=== PATIENT | female | born 1985 | race Caucasian/White ===

== ENCOUNTER → 2017-03-09 | Outpatient (REF) | payer OTHER | LOC: M LAB REF 19:07 | DX: J06.9 Acute upper respiratory infection, unspecified (principal) ==

== ENCOUNTER → 2017-10-31 | Outpatient (REF) | payer OTHER | LOC: M LAB REF 12:30 | DX: J02.9 Acute pharyngitis, unspecified (principal) ==

== ENCOUNTER 2018-09-25 15:32 | Emergency (ER) | payer BC, OTHER ==
[~2018-09-25] VITALS: Ht 170.2 cm; Wt 87.3 kg
[2018-09-25] MEDS ORDERED: RIZA10TA4 PO (15:44)
[2018-09-25] MEDS ORDERED: ONDA4TAB6 PO (15:44)
[2018-09-25 16:07] LABS: BASO % 0.2 % (0.0-1.0); EOS # 0.1 10^3/uL (0.0-0.50); EOS % 1.1 % (0.0-3.0); HEMOGLOBIN 13.2 g/dl (12.0-15.5); LYMPH # 2.4 10^3/uL (1.5-4.5); LYMPH % 19.8 % (24.0-44.0); MEAN CORPUSCULAR HEMOGLOBIN 31.1 pg (27.0-33.0); MEAN CORPUSCULAR HGB CONC 33.8 g/dl (32.0-36.5); MONO # 0.8 10^3/uL (0.0-0.8); MONO % 6.6 % (0.0-5.0); NEUTROPHILS # 8.9 10^3/uL (1.8-7.7); NEUTROPHILS % 71.9 % (36.0-66.0); PLATELET COUNT, AUTOMATED 263 10^3/uL (150-450); RED BLOOD COUNT 4.24 10^6/uL (4.00-5.40); WHITE BLOOD COUNT 12.3 10^3/uL (4.0-10.0)
[2018-09-25 16:36] LABS: ALBUMIN 3.6 GM/DL (3.2-5.2); ALT/SGPT 24 U/L (12-78); BILIRUBIN,DIRECT < 0.1 MG/DL (0.0-0.2); BILIRUBIN,TOTAL 0.1 MG/DL (0.2-1.0); BLOOD UREA NITROGEN 10 MG/DL (7-18); CARBON DIOXIDE LEVEL 24 MEQ/L (21-32); CHLORIDE LEVEL 106 MEQ/L (98-107); CREATININE FOR GFR 0.76 MG/DL (0.55-1.30); GLOMERULAR FILTRATION RATE > 60.0 (>60); GLUCOSE, FASTING 111 MG/DL (70-100); LIPASE 121 U/L (73-393); POTASSIUM SERUM 3.5 MEQ/L (3.5-5.1); SODIUM LEVEL 139 MEQ/L (136-145); TOTAL PROTEIN 7.1 GM/DL (6.4-8.2)
[2018-09-25] MEDS ORDERED: ACETAMINOPHEN 325 MG TAB PO ONE (17:45)
[2018-09-25] MEDS ORDERED: ONDANSETRON 4 MG ORAL DISINTEGRATING TAB (Q0162 PER 1MG) PO ONE (17:45)
[2018-09-25] MEDS ORDERED: ZOFR4TAB16 PO (19:17)
[2018-09-25 19:22] VITALS: BP 136/81
--- NOTE | 2018-09-25 19:34 | REPVR ---
EXAM: US First Trimester, Transabdominal EXAM DATE/TIME: 09/25/2018 6:47 PM CLINICAL HISTORY: 33 years old, female; complicated by abdominal or pelvic pain; Lower; First trimester; Gestational age or lmp: Unknown; ; Prior surgery; Surgery date: 6+ months; Surgery type: Previous lt tubal ectopic removal, laparoscopic bilat cyst removal; Additional info: Bilateral lower abd pain, near ovaries, +hcg TECHNIQUE: Imaging protocol: Real-time transabdominal obstetrical ultrasound of the maternal pelvis and a first trimester , less than 14 weeks 0 days, with image documentation. COMPARISON: No relevant prior studies available. FINDINGS: GESTATION: Gestation: There is a single intrauterine . Heart rate: Cardiac activity noted at a rate of 116 beats per minute. BIOMETRY: Tulia-Rump length: There is a pole with a crown-rump length measurement of 0.5 cm for a menstrual age of 6 weeks and 2 days. MATERNAL: Uterus: Unremarkable. Cervix: Unremarkable. Right adnexa: Blood flow demonstrated in the right ovary on color Doppler and pulse Doppler examination. Rim-like vascularity suggest the presence of a corpus luteum cyst which measures approximately 2 cm in maximum diameter The right ovary measures 2.8 x 2.8 x 1.7 cm. Blood flow demonstrated in the right ovary on color Doppler and pulse Doppler examination. Left adnexa: The left ovary measures 4 x 2.3 x 2.9 cm. Complex rounded area of heterogeneous echotexture with isoechoic to the adjacent ovary noted in the left ovary. Intraperitoneal: No intraperitoneal free fluid. IMPRESSION: 1. Single live intrauterine with an estimated menstrual age of 6 weeks and 2 days plus or -3 days. 2. Corpus luteum cyst in the left ovary Electronically signed by: Elen Kate On 09/25/2018 19:34:14 PM
== END 2018-09-25 19:32 | disposition home or self-care (01) ==
LOC: M ED 15:32
DX: O99.89 Other specified diseases and conditions complicating pregnancy, childbirth and the puerperium (principal); N83.202 Unspecified ovarian cyst, left side; Z3A.01 Less than 8 weeks gestation of pregnancy
CPT/HCPCS: 36415; 76801; 80048; 80076; 81001; 83690; 84702; 85025; 87086; 93976; 99284; Q0162

== ENCOUNTER → 2018-09-25 | Outpatient (REF) | payer BC ==
[~2018-09-25] MED LIST: ONDA4TAB6 PO; RIZA10TA4 PO; ZOFR4TAB16 PO
== END ==
LOC: M LAB REF 19:05
PROVIDERS: ATTEND Physician Assistant Medical
DX: R10.9 Unspecified abdominal pain (principal)

== ENCOUNTER → 2018-10-26 | Outpatient (REF) | payer BC | LOC: M LAB REF 12:13 | PROVIDERS: ATTEND Physician Assistant | DX: J02.9 Acute pharyngitis, unspecified (principal) ==

== ENCOUNTER → 2020-05-05 | Outpatient (REF) | payer BC ==
[~2020-05-05] MED LIST changes: -RIZA10TA4 PO; +RIZA10TA58 PO
[2020-05-05 19:04] LABS: FREE T4 0.99 NG/DL (0.76-1.46); THYROID STIMULATING HORMONE 0.885 uIU/ML (0.358-3.740)
== END ==
LOC: M SFHCADAM 15:29
PROVIDERS: ATTEND Family Medicine
DX: F41.8 Other specified anxiety disorders (principal)

== ENCOUNTER → 2020-12-28 | Outpatient (REF) | payer BC | LOC: M LAB REF 15:28 | PROVIDERS: ATTEND Physician Assistant | DX: J00 Acute nasopharyngitis [common cold] (principal) ==

== ENCOUNTER → 2021-10-30 | Outpatient (REF) | payer OTHER ==
[2021-10-30 13:10] LABS: BASO % 0.4 % (0.0-1.0); EOS # 0.2 10^3/uL (0.0-0.5); EOS % 2.9 % (0.0-3.0); HEMATOCRIT 42.5 % (36.0-47.0); LYMPH # 1.5 10^3/uL (1.5-5.0); LYMPH % 21.4 % (24.0-44.0); MEAN CORPUSCULAR HEMOGLOBIN 30.2 pg (27.0-33.0); MEAN CORPUSCULAR HGB CONC 32.9 g/dl (32.0-36.5); MEAN CORPUSCULAR VOLUME 91.6 fl (80.0-96.0); MONO # 0.6 10^3/uL (0.0-0.8); NEUTROPHILS # 4.7 10^3/uL (1.5-8.5); PLATELET COUNT, AUTOMATED 288 10^3/uL (150-450); RED BLOOD COUNT 4.64 10^6/uL (4.00-5.40)
[2021-10-30 14:05] LABS: ALBUMIN 3.8 GM/DL (3.2-5.2); ALT/SGPT 41 U/L (12-78); BILIRUBIN,TOTAL 0.4 MG/DL (0.2-1.0); BLOOD UREA NITROGEN 11 MG/DL (7-18); CALCIUM LEVEL 9.2 MG/DL (8.5-10.1); CARBON DIOXIDE LEVEL 26 MEQ/L (21-32); CHLORIDE LEVEL 105 MEQ/L (98-107); GLOMERULAR FILTRATION RATE > 60.0 (>60); GLUCOSE, FASTING 86 MG/DL (70-100); POTASSIUM SERUM 4.2 MEQ/L (3.5-5.1); SODIUM LEVEL 134 MEQ/L (136-145); THYROID STIMULATING HORMONE 0.615 uIU/ML (0.358-3.740); TOTAL PROTEIN 7.3 GM/DL (6.4-8.2)
== END ==
LOC: M SFHCADAM 10:23
PROVIDERS: ATTEND Family Medicine
DX: R00.0 Tachycardia, unspecified (principal)